=== PATIENT | female | born 1980 | race Caucasian/White ===

== ENCOUNTER → 2016-10-17 | Outpatient (CLI) | payer OTHER ==
[~2016-10-17] MED LIST: ALPH50CA2 PO; ASPI1TAB21 PO; CHRO200T2 PO; No meds per pt.
== END ==
LOC: STAR 13:13
PROVIDERS: ATTEND Obstetrics & Gynecology Female Pelvic Medicine and Reconstructive Surgery
DX: Z02.9 Encounter for administrative examinations, unspecified (principal)

== ENCOUNTER 2016-10-27 12:20 | Day surgery (SDC) | payer OTHER ==
[~2016-10-27] VITALS: Ht 170.2 cm; Wt 151.1 kg
[~2016-10-27 12:20] MED LIST changes: +BUPIVACAINE/PF 0.25% ONE; +EPINEPHRINE 1 MG/ML, 1ML ONE
[2016-10-27 12:48] VITALS: BP 134/71
[2016-10-27] MEDS ORDERED: LACTATED RINGERS 1,000 ML IV SCH (12:53)
[2016-10-27] MEDS ORDERED: LIDOCAINE 1%, 2ML SQ PRN (13:00)
[2016-10-27] MEDS ORDERED: MIDAZOLAM 1 MG/ML, 2ML ONE (15:09)
[2016-10-27] MEDS ORDERED: FENTANYL PF 100 MCG/2ML ONE (15:09)
[2016-10-27] MEDS ORDERED: PROPOFOL 10 MG/ML, 50ML ONE (15:45)
[2016-10-27] MEDS ORDERED: METOCLOPRAMIDE 5 MG/ML, 2ML ONE (15:45)
[2016-10-27] MEDS ORDERED: CEFOTETAN 2 GM ONE (15:45)
[2016-10-27] MEDS ORDERED: ONDANSETRON 2MG/ML, 2ML ONE (15:45)
[2016-10-27] MEDS ORDERED: PROPOFOL 10 MG/ML, 20ML ONE (15:45)
[2016-10-27] MEDS ORDERED: SUCCINYLCHOLINE 20 MG/ML, 10ML ONE (15:45)
[2016-10-27] MEDS ORDERED: DEXAMETHASONE 4 MG/ML, 5ML ONE (15:45)
[2016-10-27] MEDS ORDERED: ROCURONIUM 10 MG/ML ONE (15:45)
[2016-10-27] MEDS ORDERED: KETOROLAC 30 MG/1 ML ONE (15:45)
[2016-10-27] MEDS ORDERED: HYDROmorphone 2 MG/ML, 1ML ONE (15:59)
[2016-10-27] MEDS ORDERED: HYDROmorphone 1 MG/ML, 1ML IV PRN (16:30)
[2016-10-27] MEDS ORDERED: ONDANSETRON 2MG/ML, 2ML IVPush PRN (16:30)
[2016-10-27] MEDS ORDERED: MEPERIDINE/PF 25MG/0.5ML IVPush PRN (16:30)
[2016-10-27] MEDS ORDERED: LABETALOL 5MG/ML, 20ML IV PRN (16:30)
[2016-10-27] MEDS ORDERED: PROMETHAZINE 25 MG/ML, 1ML IV PRN (16:30)
[2016-10-27] MEDS ORDERED: hydrALAzine 20 MG/ML, 1ML IV PRN (16:30)
[2016-10-27] MEDS ORDERED: FENTANYL PF 100 MCG/2ML IV PRN (16:30)
[2016-10-27] MEDS ORDERED: OXYcodone 5 MG/5 ML ORAL.SOL UDC PO PRN (16:30)
[2016-10-27] MEDS ORDERED: ACETAMINOPHEN 325 MG TABLET PO PRN (16:30)
[2016-10-27] MEDS ORDERED: OXYcodone 5 MG/5 ML ORAL.SOL UDC ONE (16:48)
[2016-10-27] MEDS ORDERED: ACETAMINOPHEN 650 MG/20.3 ML UDC ONE (16:48)
== END 2016-10-27 19:05 | disposition home or self-care (01) ==
LOC: OUT 12:20
PROVIDERS: ATTEND Obstetrics & Gynecology Female Pelvic Medicine and Reconstructive Surgery
DX: N94.10 Unspecified dyspareunia (principal); N80.3 Endometriosis of pelvic peritoneum; N83.201 Unspecified ovarian cyst, right side; K21.9 Gastro-esophageal reflux disease without esophagitis; G43.909 Migraine, unspecified, not intractable, without status migrainosus; Z90.710 Acquired absence of both cervix and uterus; Z91.012 Allergy to eggs; Z98.890 Other specified postprocedural states
CPT/HCPCS: 58661; 88305; J0171; J0330; J1100; J1170; J1885; J2250; J2405; J2704; J2765; J3010; J3490; J7120; S0074

== ENCOUNTER → 2016-11-25 | Outpatient (CLI) | payer OTHER ==
[~2016-11-25] MED LIST changes: -BUPIVACAINE/PF 0.25% ONE; -EPINEPHRINE 1 MG/ML, 1ML ONE
== END | disposition home or self-care (01) ==
LOC: CFH 13:28
PROVIDERS: ATTEND Obstetrics & Gynecology Female Pelvic Medicine and Reconstructive Surgery
DX: N63 Unspecified lump in breast (principal)
CPT/HCPCS: 76641; G0204

== ENCOUNTER → 2017-04-08 | Outpatient (CLI) | payer OTHER | END | disposition home or self-care (01) | LOC: CFH 12:55 | PROVIDERS: ATTEND Obstetrics & Gynecology Female Pelvic Medicine and Reconstructive Surgery | DX: N63.10 Unspecified lump in the right breast, unspecified quadrant (principal); N63.20 Unspecified lump in the left breast, unspecified quadrant; N64.4 Mastodynia | CPT/HCPCS: 77066 ==